=== PATIENT | female | born 1965 ===

== ENCOUNTER → 2024-11-30 | Outpatient (CLI) | payer BC ==
[2024-11-30 14:51] VITALS: BP 177/93; PULSE 100; RESP 16; TEMP 98.4
--- NOTE | 2024-11-30 17:15 | P.SLEEP ---
History of Present Illness H&P Date: 11/30/24 This is a 59-year-old female patient, known history of COPD and obstructive sleep apnea, coming in with symptoms of excessive fatigue and sleepiness along with snoring and sleep fragmentation and this has been ongoing for many years. The patient wakes up occasionally choking and gasping for air. Her sleep is restless and the patient grinds her teeth. She goes to bed at 11 PM and wakes up 11 AM in the morning and the patient feels drowsy and sleepy despite spending many hours in bed. More recently, she is drinking alcohol in excess. She is drinking approximately a pint of vodka 2-3 times a week. Since then, her condition has gotten worse and she is feeling more tired and sleepy during the day. She has no difficulties in sleep initiation. Her sleep does not seem to be fragmented. She does not take any naps during the day. The weight is up around 10 pounds over the past 1 year. On a separate note, the patient has been diagnosed having obstructive sleep apnea through a sleep center out of [facility]. She was offered CPAP therapy and she was unable to comply due to poor tolerance. The patient states that she was ripping of the mask while being on treatment and based on treatment failure, the machine was returned back to her DME and the patient has not received any treatment since. Based on her worsening of symptoms, the patient is coming in for evaluation. Review of Systems Constitutional: Reports daytime sleepiness, Reports fatigue, Reports weight gain Eyes: denies as per HPI, denies blurred vision, denies bulging eye, denies decreased vision, denies diplopia, denies discharge, denies dry eye, denies irritation, denies itching, denies pain, denies photophobia, denies loss of peripheral vision, denies loss of vision, denies tunnel vision/blind spots Ears: deny: decreased hearing, ear discharge, earache, tinnitus Ears, nose, mouth and throat: Reports as per HPI Breasts: absent: as per HPI, change in shape, gynecomastia, masses, nipple discharge, pain, skin changes, swelling Cardiovascular: Reports as per HPI Respiratory: Reports cough, Reports dyspnea, Reports snoring Gastrointestinal: Reports as per HPI Genitourinary: Reports as per HPI Menstruation: Reports as per HPI Musculoskeletal: Reports as per HPI Musculoskeletal: absent: ankle pain, ankle stiffness, ankle swelling, as per HPI, elbow pain, elbow stiffness, elbow swelling, foot pain, foot stiffness, foot swelling, hand pain, hand stiffness, hand swelling, hip pain, hip stiffness, hip swelling, knee pain, knee stiffness, knee swelling, shoulder pain, shoulder stiffness, shoulder swelling, wrist pain, wrist stiffness, wrist swelling Integumentary: Reports as per HPI Neurological: Reports as per HPI Psychiatric: Reports as per HPI Endocrine: Reports as per HPI, Reports fatigue Hematologic/Lymphatic: Reports as per HPI Allergic/Immunologic: Reports as per HPI Past Medical History Past Medical History: Hypertension, Sleep Apnea/CPAP/BIPAP History of Any Multi-Drug Resistant Organisms: None Reported Past Surgical History: Appendectomy, Section, Hysterectomy Additional Past Surgical History / Comment(s): cataracts both eyes, sinus surgery Past Anesthesia/Blood Transfusion Reactions: No Reported Reaction Past Psychological History: No Psychological Hx Reported Smoking Status: Current every day smoker Past Alcohol Use History: Occasional Past Drug Use History: Marijuana - Past Family History Mother Family Medical History: Hypertension Additional Family Medical History / Comment(s): dementia Father Family Medical History: Coronary Artery Disease (CAD) Additional Family Medical History / Comment(s): lung problems Medications and Allergies Home Medications Medication Instructions Recorded Confirmed Type lisinopriL [Zestril] 20 mg PO DAILY 11/30/24 11/30/24 History Physical Exam Vitals: Vital Signs Temp Pulse Resp BP Pulse Ox 11/30/24 14:50 98.4 F 100 16 177/93 98 Intake and Output 11/30/24 11/30/24 11/30/24 06:59 14:59 22:59 Other: Weight 76.657 kg The patient appeared well nourished and normally developed. Vital signs as documented. Body mass index is 29 Head exam is unremarkable. No scleral icterus or corneal arcus noted. Neck is without jugular venous distension, thyromegaly, or carotid bruits. Carotid upstrokes are brisk bilaterally. Patient has a Mallampati class IV. She has evidence of teeth grinding. Lungs are clear to auscultation and percussion. Cardiac exam reveals the PMI to be normally sized and situated. Rhythm is regular. First and second heart sounds normal. No murmurs, rubs or gallops. Abdominal exam reveals normal bowel sounds, no masses, no organomegaly and no aortic enlargement. Extremities are nonedematous and both femoral and pedal pulses are normal. Examination of the skin revealed no evidence of significant rashes, suspicious appearing nevi or other concerning lesions. Neurologically, the patient is awake and alert and the patient does not have any focal neurological deficit. Cranial nerves are essentially intact. Assessment and Plan Plan: Obstructive sleep apnea, nontolerant to CPAP therapy based on previous evaluation that was done through an outside sleep center. The patient is coming in for reevaluation. Her condition has gotten worse over the years. She has gained 10 pounds and the patient is drinking alcohol in excess. As such, her sleep apnea is probably exacerbated by her weight gain and alcohol consumption. Hypersomnia with an [place] score of 9 Teeth grinding, being followed up by her dentist and she will get a mouthguard. COPD maintain schedule up to on outpatient basis Hypertension Alcohol abuse due to social stressors as the patient's has been through a liver transplantation surgery and this whole experience has been quite stressful. Smoker, 40 pack years Plan Immediate alcohol cessation and the patient was counseled in this regard Weight loss Optimize sleep hygiene measures Perform a polysomnography to reevaluate the presence and severity of her sleep apnea we will come up with treatment options accordingly. The patient is considering to try CPAP therapy again. I believe she may be a better candidate for BiPAP therapy with her history of poor CPAP tolerance and COPD. Time with Patient: Greater than 30 Sleep Note - Sleep Data ESS Total: 9 - Sleep Note Sleep Note: Temperature: 98.4 F Pulse Rate: 100 Respiratory Rate: 16 Blood Pressure: 177/93 SpO2: 98 Height: 5 ft 4 in Weight: 76.657 kg BMI: Neck Circumference: 16
== END ==
LOC: 3 N SLEEP 14:39
PROVIDERS: ATTEND Internal Medicine Critical Care Medicine
DX: G47.33 Obstructive sleep apnea (adult) (pediatric) (principal); G47.63 Sleep related bruxism; I10 Essential (primary) hypertension; J44.9 Chronic obstructive pulmonary disease, unspecified; F17.210 Nicotine dependence, cigarettes, uncomplicated; F10.10 Alcohol abuse, uncomplicated; Z94.4 Liver transplant status
CPT/HCPCS: 99202